=== PATIENT | male | born 1960 | race Caucasian/White ===

== ENCOUNTER 2018-11-25 00:46 | Day surgery (SDC) | payer OTHER ==
[2018-11-25] VITALS (8 sets, daily range): BP systolic 89–138; BP diastolic 62–89
[~2018-11-25] VITALS: Ht 172.7 cm; Wt 64.9 kg
[~2018-11-25 00:46] MED LIST: ATOR20TA22 PO; OMEP-125 PO
[2018-11-25] MEDS ORDERED: GLYCOPYRROLATE 0.2MG/ML 1 ML INJ IVP ONE (09:00)
[2018-11-25] MEDS ORDERED: LIDOCAINE/SOD BICARB 8.4% SYR ID ONE (09:30)
[2018-11-25] MEDS ORDERED: NORMOSOL R SOLN(*) 1000 ML BAG 1,000 ML IV PRN (09:30)
[2018-11-25] MEDS ORDERED: PROPOFOL EMUL(*) 10MG/ML 20 ML 40 ML ONE (10:20)
[2018-11-25] MEDS ORDERED: LIDOCAINE MPF 1% 5 ML VIAL ONE (10:20)
--- NOTE | 2018-11-25 11:39 | Short(Outpt) Discharge Summary ---
Discharge Summary Reason for Hosp/Final Diag: (1) GERD (gastroesophageal reflux disease) Hospital Course & Plan: pt presented for egd and colonoscopy. he tolerated the procedures well. path pending. he will be discharged home when criteria met. (2) Encounter for screening colonoscopy Discharge Instructions Home Meds Reported Medications Atorvastatin Calcium (LIPITOR) Unknown Strength Tablet, PO QDAY, TAB 10/28/18 Omeprazole (OMEPRAZOLE) Unknown Strength Capsule., PO BID, CAP 10/28/18 Diet: Regular Activity: As Tolerated Special Instructions: we will call you in 10 days with biopsy results. PRIYA SHULTZ November 25, 2018 11:39
== END 2018-11-25 12:45 | disposition home or self-care (01) ==
LOC: OR 00:46
PROVIDERS: ATTEND Surgery
DX: Z12.11 Encounter for screening for malignant neoplasm of colon (principal); K57.30 Diverticulosis of large intestine without perforation or abscess without bleeding; K29.70 Gastritis, unspecified, without bleeding
CPT/HCPCS: 00812; 43239; 45378; 87077; 88305; 88313; 88342; J2001; J2704; J3490